=== PATIENT | male | born 1980 | race Caucasian/White ===

== ENCOUNTER 2022-04-23 07:31 | Day surgery (SDC) | payer BC, SELFPAY ==
[2022-04-23 08:05] VITALS: BMI 34.0
[2022-04-23 08:24] VITALS: BP 148/94; PULSE 95; RESP 17; TEMP 36.5; O2SAT 99
[2022-04-23] MEDS: LACTATED RINGERS 1,000 ML 200 ML IV (08:28)
--- NOTE | 2022-04-23 09:12 | PM.HP.1 ---
History of Present Illness History of Present Illness Date Patient Seen: 04/23/22 Time Patient Seen: 09:12 Chief complaint: Screening Colonoscopy Narrative: The patient presents for colorectal screening. They have never had any previous examination for such. His father has stage IV colon cancer. On further history denies any recent gastrointestinal symptoms. No nausea, vomiting, abdominal pain, loss of appetite, unexplained weight loss, change in bowel habits, or blood per rectum. Patient History Family & Social History Social History: household members spouse Tobacco & Substance use: Tobacco type smokeless tobacco Smoking Status Never smoker alcohol intake never Substance Use Type marijuana Meds Home Medications and Allergies Home Medications Medication Instructions Recorded Confirmed Type [DEPRESSION MEDS] Q DAY ##0 10/16/07 History indomethacin 25 mg capsule 75 mg PO Q8HR ##0 01/14/17 04/23/22 History Concerta 54 PO DAILY 04/23/22 History losartan 25 mg tablet 25 mg PO DAILY 04/23/22 04/23/22 History methylphenidate HCl 54 mg 54 mg PO DAILY 04/23/22 04/23/22 History tablet,extended release 24 hr (Concerta) Allergies Allergy/AdvReac Type Severity Reaction Status Date / Time No Known Drug Allergies Allergy Unknown Unverified 05/28/17 12:11 Exam Vital Signs (past 8 hours): - 04/23/22 08:24 Temperature 97.7 F Pulse Rate 95 H Respiratory Rate 17 Blood Pressure 148/94 H Pulse Oximetry 99 Oxygen Delivery Method Room Air Oxygen Delivery Method Room Air Narrative Exam Narrative: General adult man alert oriented no acute distress Abdomen soft nontender nondistended Assessment & Plan Assessment & Plan narrative: The patient requires colorectal screening and colonoscopy is recommended. Technical details were discussed. Risks, benefits, alternatives explained. Risks including but not limited to myocardial infarction, aspiration, bleeding, pain, missed lesion, incomplete examination, need for further radiographic studies, colonic perforation, and need for major abdominal surgery were discussed. All questions were answered to their satisfaction, and they are in agreement with this plan. Time Spent With Patient Critical Care time: I spent a total of [] minutes of critical care time on this patient's care today; this time is exclusive of procedural time.
[2022-04-23 09:38] VITALS: BP 133/87; PULSE 79; RESP 14; TEMP 36.8; O2SAT 96
[2022-04-23 09:42] VITALS: BP 121/83; PULSE 74; RESP 16; O2SAT 95
--- NOTE | 2022-04-23 09:45 | PM.OP.COLON ---
Operative Date/Time/Diagnoses Date of procedure: 04/23/22 Time of procedure: 09:45 Pre-op diagnosis: Colorectal screening Post-op diagnosis: same Procedure & Clinicians Study performed: Colonoscopy Same procedure as scheduled: Yes Indications: Colorectal screening. Family history of colon cancer. Surgeon: Arcenio Wilcox Procedure Notes Procedure in detail: The history and physical was performed/updated and the patient is ASA class is 2. The procedure was discussed in detail with the patient. Potential risks complications including infection, bleeding, missed diagnosis, perforation, need for surgery, and were explained. Their questions were answered and informed consent was obtained. Patient was brought to the procedure room and placed standard monitoring equipment. The patient's vital signs were monitored continuously throughout the entire procedure. Prior to starting time-out was performed. The patient was placed in the left lateral recumbent position. Procedural sedation was administered by anesthesia. Examination began with a thorough inspection of the perianal area there was no evidence of fissures, fistulae, external hemorrhoids or cutaneous malignancy. The colonoscopy scope was then placed into the anal canal and was advanced to the cecum, which was identified by the ileocecal valve, the appendiceal orifice and the confluence of the taenia. The scope was then slowly withdrawn examining colon thoroughly in all directions, irrigating it of any residual stool. Colon was notable for diverticulosis only. There were no masses polyps or inflammation. The patient tolerated the procedure well. They will be discharged once criteria are met. The prep was of good/excellent quality. The withdrawl time was 6 minutes. Specimen(s): none sent Impression: Normal colonoscopy Post-procedure Recommendations: Colonoscopy in 10 years Disposition: same day surgery
[2022-04-23 09:49] VITALS: BP 138/94; PULSE 76; RESP 12; O2SAT 99
[2022-04-23 09:53] VITALS: BP 146/93; PULSE 77; RESP 16; TEMP 37.3; O2SAT 94
--- NOTE | 2022-04-23 10:08 | SUR.PHASEII ---
Pt A&Ox4, denies any distress, abdomen soft, and ready to discharge home. Discharge instructions reviewed with pt with time allowed for questions. IV DC'd intact. Pt left unit in stable condition via w/c to ER entrance where spouse will transport pt home.
== END 2022-04-23 10:10 | disposition home or self-care (01) ==
PROVIDERS: PCP Physician Assistant Medical; Referring Provider Surgery; Visit Provider Surgery
PROC: 0DJD8ZZ Inspection of Lower Intestinal Tract, Via Natural or Artificial Opening Endoscopic (ICD-10-PCS; CPT 45378; principal; 2022-04-23 09:00)
DX: Z12.11 Encounter for screening for malignant neoplasm of colon (principal); Z80.0 Family history of malignant neoplasm of digestive organs; K57.30 Diverticulosis of large intestine without perforation or abscess without bleeding
CPT/HCPCS: 45378; 36415; J2250; J2704; J3010

== ENCOUNTER 2023-10-22 15:33 | Emergency (ER) | payer BC, SELFPAY ==
[2023-10-22 15:44] VITALS: BP 160/105; PULSE 79; RESP 17; TEMP 36.6; O2SAT 99; BMI 33.5
--- NOTE | 2023-10-22 16:27 | ED_ITS ---
HPI - Male Genitourinary <Bob Saravia PA-C - Last Filed: 10/22/23 16:42> General Chief complaint: Urogenital-Male Stated complaint: thinks he has a hernia Time Seen by Provider: 10/22/23 16:02 Source: patient Mode of arrival: Ambulatory History of Present Illness HPI Narrative: This is a 43-year-old male presenting to the emergency department due to concerns that he was a hernia. He states that he noticed a sensation near his rectum yesterday and states that it grew slightly larger as with the spine causing him to come in. Reports some mild pain and irritation in the area. Denies any chest pain, shortness of breath, fevers, or any other concerning signs or symptoms. 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 Denies any blood in his stool or any bleeding. Related Data Home Medications Medication Instructions Recorded Confirmed [DEPRESSION MEDS] Q DAY ##0 10/16/07 indomethacin 25 mg capsule 75 mg PO Q8HR ##0 01/14/17 04/23/22 Concerta 54 PO DAILY 04/23/22 losartan 25 mg tablet 25 mg PO DAILY 04/23/22 04/23/22 methylphenidate HCl 54 mg 54 mg PO DAILY 04/23/22 04/23/22 tablet,extended release 24 hr (Concerta) Allergies Allergy/AdvReac Type Severity Reaction Status Date / Time No Known Drug Allergies Allergy Unknown Verified 10/22/23 15:46 Review of Systems <Bob Saravia PA-C - Last Filed: 10/22/23 16:42> Review of Systems Narrative: GENERAL: Denies chills, fatigue, malaise, fever, sweats. HEENT: Denies sinus pain, ear pain, sore throat, difficulty swallowing, dizziness. RESPIRATORY: Denies dyspnea, cough, wheezing, hemoptysis, sputum. CARDIOVASCULAR: Denies chest pain, palpitations, orthopnea, edema, GASTROINTESTINAL: Denies nausea, vomiting, abdominal pain, diarrhea, constipation, melena. : Denies dysuria, frequency, incontinence, hematuria, urinary retention. MUSCULOSKELETAL: denies weakness, joint pain, or bony pain SKIN: Reports mass in the rectum NEUROLOGIC: Denies weakness, headache, numbness, change in speech, confusion, seizures, incoordination. PSYCHIATRIC: No concerning psychosocial issues. 12 point review of systems is negative except for those stated above Patient History <Bob Saravia PA-C - Last Filed: 10/22/23 16:42> Social History household members: spouse Smoking Status: Never smoker alcohol intake: never Smoking Status: Never smoker tobacco type: smokeless tobacco alcohol intake frequency: holidays/special occasions only Substance Use Type: marijuana Exam <Bob Saravia PA-C - Last Filed: 10/22/23 16:42> Narrative Exam Narrative: GENERAL: Well-developed patient, in mild distress. HEAD: Atraumatic. Normocephalic. EYES: Pupils equal round and reactive. Extraocular motions intact. No scleral icterus. No injection or drainage. ENT: Nose without bleeding, purulent drainage. Throat without erythema, tonsillar hypertrophy or exudate. Airway patent. NECK: Trachea midline. Non tender EXTREMITIES: No edema or joint tenderness. NEURO: AOx3. SKIN: Thrombosed external hemorrhoid. No bleeding or breaks in the skin. Initial Vital Signs Initial Vital Signs: Vital Signs Temperature 98 F 10/22/23 15:44 Pulse Rate 79 10/22/23 15:44 Respiratory Rate 17 10/22/23 15:44 Blood Pressure 160/105 H 10/22/23 15:44 Pulse Oximetry 99 10/22/23 15:44 Oxygen Delivery Method Room Air 10/22/23 15:44 <Solomon Oliver MD - Last Filed: 10/22/23 18:43> Initial Vital Signs Initial Vital Signs: Vital Signs Temperature 98 F 10/22/23 15:44 Pulse Rate 79 10/22/23 15:44 Respiratory Rate 17 10/22/23 15:44 Blood Pressure 160/105 H 10/22/23 15:44 Pulse Oximetry 99 10/22/23 15:44 Oxygen Delivery Method Room Air 10/22/23 15:44 Course <Bob Saravia PA-C - Last Filed: 10/22/23 16:42> Vital Signs Vital signs: Vital Signs - 8 hr 10/22/23 15:44 Temperature 98 F Pulse Rate 79 Respiratory Rate 17 Blood Pressure 160/105 H Pulse Oximetry 99 Oxygen Delivery Method Room Air <Solomon Oliver MD - Last Filed: 10/22/23 18:43> Vital Signs Vital signs: Vital Signs - 8 hr 10/22/23 15:44 Temperature 98 F Pulse Rate 79 Respiratory Rate 17 Blood Pressure 160/105 H Pulse Oximetry 99 Oxygen Delivery Method Room Air MDM - Male Genitourinary <Bob Saravia PA-C - Last Filed: 10/22/23 16:42> [facility] Narrative Medical decision making narrative: ED course: This is a 43-year-old male presenting to the emergency department due to a thrombosed external hemorrhoid found on exam. No bleeding. Shared decision-making utilized and patient will follow up with the primary care provider if symptoms continue. Recommended preparation H. CC: Mass near rectum Complicating co-morbidities: None Data collected from: Previous notes Medical records reviewed: Patient was no medical records to review. Differential considered, but not limited to: Hemorrhoid, hernia Exam documented above, pertinent findings include: As above Lab Test results independently reviewed as above. Pertinent findings: None obtained Imaging studies independently reviewed: None obtained Scores Used: None MIPS Elements: None Consultations: None Treatments: None Re-evaluations: None Discussion: Discussed plan with the patient was comfortable with the plan Diagnosis: Thrombosed external hemorrhoid Disposition: see below, along with detailed discharge instructions that have been reviewed with patient as well as indications for ED re-evaluation and additional outpatient follow up Discharge Plan Departure Patient Disposition: Home Clinical Impression: External hemorrhoid, thrombosed, Pain of left upper extremity Instructions: DI for Hemorrhoids Activity Restrictions/Additional Instructions: Thank you for coming to the [facility] Emergency Department today. As we discussed you have a thrombosed external hemorrhoid. Please eat a high- fiber diet as well as use of the preparation H that is found over the counter to help with this. You may also speak with the primary care provider for long-term treatment for this for this. Please return to the emergency department if you develop any significant bleeding, pain, or any other concerning signs or symptoms. I hope you feel better soon. Please follow up with your primary care provider within a week if your symptoms continue. If you do not have a primary care provider please contact the [facility] Resource line at [phone]. They will ask some questions about your medical history and help you get set up with a provider in the community. Prescriptions: No Action [DEPRESSION MEDS] Q DAY Qty: 0 indomethacin 25 MG capsule 75 mg PO Q8HR Qty: 0 Concerta 54 PO DAILY methylphenidate HCl [Concerta] 54 mg Tablet Extended Release 24hr 54 mg PO DAILY losartan 25 mg Tablet 25 mg PO DAILY Referrals: Rema Saavedra PA-C [Primary Care Provider] - Stand Alone Forms: Patient Portal/API ED Sign-out <Solomon Oliver MD - Last Filed: 10/22/23 18:43> Cosign ED Attending Layne Attestation: I was immediately available in the department for consultation. This documentation has been reviewed and I agree with assessment and plan. Supervised by Solomon Oliver MD
--- NOTE | 2023-10-22 16:39 | PC.NURSE ---
Pt seen and assessed by provider before this RN was in room.
== END 2023-10-22 16:53 | disposition home or self-care (01) ==
PROVIDERS: Emergency Provider Physician Assistant Medical; PCP Physician Assistant Medical
DX: K64.5 Perianal venous thrombosis (principal); M79.602 Pain in left arm
CPT/HCPCS: 99281; 99282